=== PATIENT | female | born 1965 ===

== ENCOUNTER 2016-07-04 01:46 | Emergency (ER) | payer MEDICAID ==
[2016-07-04 01:46] VITALS: BMI 14.4
[2016-07-04 02:02] VITALS: PULSE 75
[2016-07-04] MEDS ORDERED: Albuterol 0.083% Inhal Sol (2.5 mg/3 mL) UD INH ONE (02:32)
[2016-07-04] MEDS ORDERED: Albuterol 0.083% Inhal Sol (2.5 mg/3 mL) UD ONE (02:48)
[2016-07-04 02:59] LABS: BASO % 0.4 % (0.0-2.0); EOS # 0.1 K/uL (0.0-0.7); EOS % 1.7 % (0.0-4.0); HEMATOCRIT 40.9 % (34.0-47.0); LYMPH # 2.8 K/uL (1.0-4.3); LYMPH % 32.5 % (20.0-40.0); MEAN CELL VOLUME 81.4 fl (81.0-99.0); MEAN CORPUSCULAR HEMOGLOBIN 27.1 pg (27.0-31.0); MEAN CORPUSCULAR HGB CONC 33.3 g/dL (33.0-37.0); MONO # 0.7 K/uL (0.0-0.8); MONO % 8.3 % (0.0-10.0); NEUT % 57.1 % (50.0-75.0); NRBC % 0.1 % (0.0-0.0); RED CELL DISTRIBUTION WIDTH 13.9 % (11.5-14.5); WHITE BLOOD COUNT 8.7 K/uL (4.8-10.8)
[2016-07-04 03:06] LABS: ALB/GLOB RATIO 1.4 (1.0-2.1); ALKALINE PHOSPHATASE 120 U/L (38-126); ALT/SGPT 64 U/L (9-52); AST/SGOT 40 U/L (14-36); BILIRUBIN,TOTAL 0.2 mg/dl (0.2-1.3); BLOOD UREA NITROGEN 11 mg/dl (7-17); CALCIUM 9.3 mg/dL (8.4-10.2); CARBON DIOXIDE 28 mmol/L (22-30); CHLORIDE 104 mmol/L (98-107); GFR AFRICAN-AMERICAN > 60; GLUCOSE,RANDOM 103 mg/dL (65-105); POTASSIUM 3.7 MMOL/L (3.6-5.0); SODIUM 144 mmol/l (132-148); TOTAL PROTEIN 8.2 G/DL (6.3-8.2)
[2016-07-04] MEDS ORDERED: Sodium Chloride 0.9% 50 ML IV ONE (03:24)
[2016-07-04] MEDS ORDERED: Iodixanol 320 MG/ML 100 ML BOTTLE IV ONE (03:24)
--- NOTE | 2016-07-04 03:31 | ED PDOC ---
HPI: Chest Pain Time Seen by Provider: 07/04/16 02:04 Chief Complaint (Nursing): Chest Pain Chief Complaint (Provider): Chest Pain History Per: Patient History/Exam Limitations: no limitations Onset/Duration Of Symptoms: Hrs Current Symptoms Are (Timing): Still Present Pain Scale Rating Of: 7 Quality: Tightness Associated Symptoms: Nausea Additional Complaint(s): Kellie East, a 50 year old female patient, who has a history of hyperthyroidism presents to the ED complaining of midsternal chest pain.The patient reports that tonight she began feeling tightness, heat and discomfort within her chest. She also states, that on 06/25/2016, she was seen at [facility] for similar chest pains. She states she was diagnosed with asthma and was given a pump and steroids, which she says did not help with the pain. The patient states that she has had some nausea but denies vomiting, fever and cough. Past Medical History Reviewed: Historical Data, Nursing Documentation, Vital Signs Vital Signs: Last Vital Signs Temp 97.9 F 07/04/16 06:40 Pulse 75 07/04/16 06:40 Resp 16 07/04/16 06:40 BP 135/80 07/04/16 06:40 Pulse Ox 100 07/04/16 06:40 - Medical History PMH: Asthma, Gall Bladder Disease (GALLSTONES s/p LAP MAURICE about 6 yrs ago), HTN, Hypercholesterolemia, Hyperthyroidism (multinodular goiters), Hypothyroidism, Sleep Apnea (QUESTIONABLE) Denies: Alzheimer's Disease, Anemia, Anxiety, Arthritis, Atrial Fibrillation , Bipolar Disorder, Bronchitis, Cardia Arrhythmia, CHF, COPD, Crohn's Disease, Dementia, Depression, Diverticulitis, Emphysema, Fractures, Gastritis, HIV, Kidney Stones, Migraine, Mitral Valve Prolapse, Multiple Sclerosis, Osteoporosis , Pancreatitis, Paranoia, Parkinson's Disease, Peripheral Edema, Pneumonia, Post Traumatic Stress Disorder, Pulmonary Embolism, Chronic Kidney Disease, Rheumatoid Arthritis, Schizophrenia, Seizures, Sickle Cell Disease, Sexually Transmitted Disease, TIA - Surgical History Surgical History: Cholecystectomy Denies: Appendectomy, CABG, Carotid Endarterectomy, Coronary Stent, Pacemaker , Tonsillectomy - Family History Family History: States: Unknown Family Hx - Social History Current smoker - smoking cessation education provided: No Ex-Smoker (has not smoked in the last 12 months): No Alcohol: None Drugs: Denies - Immunization History Hx Tetanus Toxoid Vaccination: Yes Hx Influenza Vaccination: No Hx Pneumococcal Vaccination: No - Home Medications Home Medications: Ambulatory Orders Medication Instructions Recorded Albuterol 0.5% [Albuterol 0.5% 0.5 % IH Q4 PRN 06/25/16 Inhal Carol (2.5 mg/0.5 ml) UD] Albuterol HFA [Ventolin HFA 90 1 puff INH BID 06/25/16 mcg/actuation (8 g)] Prednisone 50 mg PO DAILY #5 tablet 06/25/16 - Allergies Allergies/Adverse Reactions: Allergies Allergy/AdvReac Type Severity Reaction Status Date / Time tetracycline Allergy RASH Verified 06/25/16 17:45 vancomycin Allergy RASH Verified 06/25/16 17:45 Review of Systems ROS Statement: Except As Marked, All Systems Reviewed And Found Negative Constitutional: Negative for: Fever Cardiovascular: Positive for: Chest Pain, Other (Tightness, heat and discomfort in chest) Respiratory: Negative for: Cough Gastrointestinal: Positive for: Nausea. Negative for: Vomiting Physical Exam - Reviewed Nursing Documentation Reviewed: Yes Vital Signs Reviewed: Yes - Physical Exam Appears: Positive for: Non-toxic, No Acute Distress Head Exam: Positive for: ATRAUMATIC, NORMOCEPHALIC Skin: Positive for: Normal Color, Warm, Dry Neck: Positive for: Normal, Painless ROM, Supple Cardiovascular/Chest: Positive for: Regular Rate, Rhythm. Negative for: Tachycardia Respiratory: Positive for: Normal Breath Sounds Gastrointestinal/Abdominal: Positive for: Normal Exam, Soft. Negative for: Tenderness Back: Positive for: Normal Inspection. Negative for: L CVA Tenderness, R CVA Tenderness Extremity: Positive for: Normal ROM. Negative for: Deformity, Swelling Neurologic/Psych: Positive for: Alert, Oriented - Laboratory Results Result Diagrams: 07/04/16 02:53 07/04/16 02:53 - ECG O2 Sat by Pulse Oximetry: 99 (RA) Pulse Ox Interpretation: Normal Medical Decision Making Medical Decision Makin Initial impression: Midsternal Chest pain Initial plan: * Angio Chest PT protocol * CMP * Troponin 1 * CBC * D-Dimer * CXR * Albuterol 0.083% Inhal carol 2.5mg/3mL * Peak flow pre/post labs and troponin negative. The patient's D-Dimer was elevated, a CT chest was performed to rule out a pulmonary embolism. Patient was made aware of blood test results for D-Dimer. LFT's elevated - pt aware Troponin repeated 2nd Troponin - Negative 433 CT Angiography Chest With Intravenous Contrast IMPRESSION: 1. No CT evidence of pulmonary embolism. 2. Incidental/non-acute findings are described above Upon provider reevaluation patient is feeling better, is medically stable, sleeping througout ER stay and requires no further treatment in the ED at this time. Patient will be discharged with follow up with primary doctor/referral to cardiology given. pt agreeable to plan. Scribe Attestation Documented by Kelley Oneill acting as a scribe for Roxana Douglas MD. Provider Attestation: All medical record entries made by the Scribe were at my direction and personally dictated by me. I have reviewed the chart and agree that the record accurately reflects my personal performance of the history, physical exam, medical decision making, and the department course for this patient. I have also personally directed, reviewed, and agree with the discharge instructions and disposition. Disposition - Clinical Impression Clinical Impression: Chest pain - Patient ED Disposition Is Patient to be Admitted: No Counseled Patient/Family Regarding: Studies Performed, Diagnosis, Need For Followup - Disposition Referrals: [facility] [Outside] [facility] [Outside] Mychal Gonzalez MD [Staff Provider] - Disposition: Routine/Home Disposition Time: 04:35 Condition: IMPROVED Additional Instructions: follow up with your primary doctor in 1-2 days and with cardiology as instructed return to the ED with any worsening or concerning symptoms. Instructions: Chest Pain (ED) Forms: [facility] ED School/Work Excuse
--- NOTE | 2016-07-04 04:35 | CT ---
EXAM: CT Angiography Chest With Intravenous Contrast CLINICAL HISTORY: 50 years old, female; Pain; Chest pain; Additional info: Elevated ddimer TECHNIQUE: Axial computed tomographic angiography images of the chest with intravenous contrast using pulmonary embolism protocol. This CT exam was performed using one or more of the following dose reduction techniques: automated exposure control, adjustment of the mA and/or kV according to patient size, and/or use of iterative reconstruction technique. MIP reconstructed images were created and reviewed. Coronal and sagittal reformatted images were created and reviewed. CONTRAST: 90 mL of [id number] administered intravenously. COMPARISON: CR - CHEST TWO VIEWS (PA/LAT) 07/04/2016 2:37:43 AM FINDINGS: Pulmonary arteries: No pulmonary embolism. Aorta: No aneurysm. No dissection. Lungs: No consolidation. Pleural space: No significant effusion. No pneumothorax. Heart: No cardiomegaly. No significant pericardial effusion. Bones/joints: Mild curvature of spine. No acute fracture. No dislocation. Soft tissues: Unremarkable. Lymph nodes: No pathologically enlarged lymph nodes. Gallbladder and bile ducts: Cholecystectomy. IMPRESSION: 1. No CT evidence of pulmonary embolism. 2. Incidental/non-acute findings are described above.
[2016-07-04 06:40] VITALS: BP 135/80; RESP 16; TEMP 97.9
[2016-07-04 06:46] VITALS: O2SAT 99
--- NOTE | 2016-07-04 08:35 | RAD ---
HISTORY: Chest pain. COMPARISON: No prior. TECHNIQUE: Chest PA and lateral FINDINGS: LUNGS: No active pulmonary disease. PLEURA: No significant pleural effusion identified. No pneumothorax apparent. CARDIOVASCULAR: Normal. OSSEOUS STRUCTURES: No significant abnormalities. VISUALIZED UPPER ABDOMEN: Normal. OTHER FINDINGS: None. IMPRESSION: No active disease. Concordant results with the preliminary interpretation rendered by the emergency department physician procedure.
== END 2016-07-04 06:42 | disposition home or self-care (01) ==
LOC: H.ER 01:46
DX: R07.9 Chest pain, unspecified (principal); R11.0 Nausea; E03.9 Hypothyroidism, unspecified; J45.909 Unspecified asthma, uncomplicated; I10 Essential (primary) hypertension; E78.00 Pure hypercholesterolemia, unspecified; E05.90 Thyrotoxicosis, unspecified without thyrotoxic crisis or storm; Z87.891 Personal history of nicotine dependence; Z88.0 Allergy status to penicillin; R79.1 Abnormal coagulation profile

== ENCOUNTER 2018-01-18 22:05 | Emergency (ER) | payer BC ==
[2018-01-18 22:05] VITALS: BMI 22.7
[2018-01-18 22:10] VITALS: BP 161/98; PULSE 80; RESP 16; TEMP 98.2; O2SAT 97
--- NOTE | 2018-01-18 22:33 | ED PDOC ---
HPI: Eye Injury/Pain Time Seen by Provider: 01/18/18 22:13 Chief Complaint (Nursing): Eye Problem Chief Complaint (Provider): Swelling, left upper eye lid History Per: Patient History/Exam Limitations: no limitations Onset/Duration Of Symptoms: Days (1 week, worse today ), Waxing/Waning Injury To Eye?: No Associated Symptoms: Pain, Swelling. denies: Decreased Vision Additional Complaint(s): 52 yo female with HTN, high cholesterol and asthma presents for evaluation of left upper eye lid swelling, pain and redness. Pt states it has been getting worse over the last week. Pt reports drainage from the left eye when she woke up this morning. PT states she has had similar in the past which she needed surgery for. Pt denies headache. Pt has not taken anything for pain. Pt denies photophobia. Past Medical History Reviewed: Historical Data, Nursing Documentation, Vital Signs Vital Signs: Last Vital Signs Temp 98.2 F 01/18/18 22:09 Pulse 80 01/18/18 22:09 Resp 16 01/18/18 22:09 BP 161/98 H 01/18/18 22:09 Pulse Ox 97 01/18/18 22:09 - Medical History PMH: Asthma, Gall Bladder Disease (GALLSTONES s/p LAP MAURICE about 6 yrs ago), HTN, Hypercholesterolemia, Hyperthyroidism (multinodular goiters), Hypothyro idism, Sleep Apnea (QUESTIONABLE) Denies: Alzheimer's Disease, Anemia, Anxiety, Arthritis, Atrial Fibrillation, Bipolar Disorder, Bronchitis, Cardia Arrhythmia, CHF, COPD, Crohn's Disease, Dementia, Depression, Diverticulitis, Emphysema, Fractures, Gastritis, HIV, Kidney Stones, Migraine, Mitral Valve Prolapse, Multiple Sclerosis, Osteoporosis, Pancreatitis, Paranoia, Parkinson's Disease, Peripheral Edema, Pneumonia, Post Traumatic Stress Disorder, Pulmonary Embolism, Chronic Kidney Disease, Rheumatoid Arthritis, Schizophrenia, Seizures, Sickle Cell Disease, Sexually Transmitted Disease, TIA - Surgical History Surgical History: Cholecystectomy Denies: Appendectomy, CABG, Carotid Endarterectomy, Coronary Stent, Pacemaker, Tonsillectomy - Family History Family History: States: Unknown Family Hx - Immunization History Hx Tetanus Toxoid Vaccination: Yes Hx Influenza Vaccination: No Hx Pneumococcal Vaccination: No - Home Medications Home Medications: Ambulatory Orders Medication Instructions Recorded Acetaminophen [Tylenol 325mg tab] 2 tab PO QID #35 tab 08/23/16 Famotidine [Pepcid] 20 mg PO BID #14 tab 08/23/16 Levothyroxine [Synthroid] 100 mcg PO DAILY 04/08/17 Tiotropium [Spiriva] 18 mcg IH DAILY 04/09/17 Levofloxacin [Levaquin] 500 mg PO DAILY #7 tablet 04/11/17 Tamsulosin [Flomax] 0.4 mg PO DAILY #30 cap 04/11/17 oxyCODONE/Acetaminophen [Percocet 1 tab PO Q6 PRN #20 tab 04/11/17 5/325 mg Tab] Cephalexin [Keflex] 500 mg PO BID #14 capsule 01/18/18 Cephalexin [Keflex] 500 mg PO BID #14 capsule 01/18/18 Ibuprofen [Motrin Tab] 800 mg PO Q6H PRN #20 tab 01/18/18 Ibuprofen [Motrin Tab] 800 mg PO Q6H PRN #20 tab 01/18/18 Polymyxin/Trimethoprim Sulfate 1 drop .ROUTE Q6H 10 Days bottle 01/18/18 [Polytrim Ophth Soln] Polymyxin/Trimethoprim Sulfate 1 drop XX Q6H 10 Days bottle 01/18/18 [Polytrim Ophth Soln] - Allergies Allergies/Adverse Reactions: Allergies Allergy/AdvReac Type Severity Reaction Status Date / Time tetracycline Allergy RASH Verified 01/18/18 22:07 vancomycin Allergy RASH Verified 01/18/18 22:07 Review of Systems ROS Statement: Except As Marked, All Systems Reviewed And Found Negative Constitutional: Negative for: Fever, Chills Eyes: Positive for: Eyelid Inflammation. Negative for: Pain, Vision Change, Conjunctivae Inflammation Physical Exam - Reviewed Nursing Documentation Reviewed: Yes Vital Signs Reviewed: Yes - Physical Exam Appears: Positive for: Well, Non-toxic, No Acute Distress Head Exam: Positive for: ATRAUMATIC, NORMAL INSPECTION, NORMOCEPHALIC Skin: Positive for: Normal Color, Warm, DRY Eye Exam: Positive for: Normal appearance, Conjunctival injection, Other ((+) edema and erythema of the left upper eyelid). Negative for: Periorbital swelling, Periorbital tenderness ENT: Positive for: Normal ENT Inspection Neck: Positive for: Normal Cardiovascular/Chest: Negative for: Bradycardia, Tachycardia Respiratory: Negative for: Accessory Muscle Use, Respiratory Distress Back: Positive for: Normal Inspection Extremity: Positive for: Normal ROM Neurologic/Psych: Positive for: Alert. Negative for: Gait, Aphasia - ECG O2 Sat by Pulse Oximetry: 97 Pulse Ox Interpretation: Normal Medical Decision Making Medical Decision Making: Discussed warm compressed and f/u with denial resolution specialist. Disposition - Clinical Impression Clinical Impression: Sty - Patient ED Disposition Is Patient to be Admitted: No Counseled Patient/Family Regarding: Diagnosis, Need For Followup, Rx Given - Disposition Referrals: Remington Winkler MD [Staff Provider] - Disposition: Routine/Home Disposition Time: 22:30 Condition: GOOD Prescriptions: Cephalexin [Keflex] 500 mg PO BID #14 capsule Cephalexin [Keflex] 500 mg PO BID #14 capsule Ibuprofen [Motrin Tab] 800 mg PO Q6H PRN #20 tab PRN Reason: Pain Ibuprofen [Motrin Tab] 800 mg PO Q6H PRN #20 tab PRN Reason: Pain Polymyxin/Trimethoprim Sulfate [Polytrim Ophth Soln] 1 drop XX Q6H 10 Days bottle Polymyxin/Trimethoprim Sulfate [Polytrim Ophth Soln] 1 drop .ROUTE Q6H 10 Days bottle Instructions: Maxine (Maribel) Forms: [facility] (Icelandic), [facility] ED School/Work Excuse
== END 2018-01-18 23:34 | disposition home or self-care (01) ==
LOC: H.ER 22:05
DX: H00.016 Hordeolum externum left eye, unspecified eyelid (principal)

== ENCOUNTER 2018-02-10 19:19 | Emergency (ER) | payer BC ==
[2018-02-10 19:21] VITALS: BMI 22.7
[2018-02-10 19:47] VITALS: BP 139/86; PULSE 72; RESP 16; TEMP 98.2; O2SAT 100
--- NOTE | 2018-02-10 20:14 | ED PDOC ---
HPI: General Adult Time Seen by Provider: 02/10/18 19:49 Chief Complaint (Nursing): Flu-like Symptoms Chief Complaint (Provider): Flu-like Symptoms History Per: Patient History/Exam Limitations: no limitations Onset/Duration Of Symptoms: Days (x3) Current Symptoms Are (Timing): Still Present Additional Complaint(s): 52 year old female presents to the ED for evaluation of throat pain, swollen node on left side of neck, tactile fever, and chills for the past three days. 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 LNMP: says she has not gotten it in years secondary to getting her thyroid removed PMD: [facility] in [place] Past Medical History Reviewed: Historical Data, Nursing Documentation, Vital Signs Vital Signs: Last Vital Signs Temp 98.2 F 02/10/18 19:44 Pulse 72 02/10/18 19:44 Resp 16 02/10/18 19:44 BP 139/86 02/10/18 19:44 Pulse Ox 100 02/10/18 19:44 - Medical History PMH: Asthma, Gall Bladder Disease, HTN, Hypercholesterolemia, Hyperthyroidism (multinodular goiters), Hypothyroidism, Sleep Apnea - Surgical History Surgical History: Cholecystectomy Other surgeries: thyroid removal - Family History Family History: States: Unknown Family Hx - Living Arrangements Living Arrangements: With Family - Social History Current smoker - smoking cessation education provided: Yes (light) Alcohol: None Drugs: Denies - Home Medications Home Medications: Ambulatory Orders Medication Instructions Recorded Acetaminophen [Tylenol 325mg tab] 2 tab PO QID #35 tab 08/23/16 Famotidine [Pepcid] 20 mg PO BID #14 tab 08/23/16 Levothyroxine [Synthroid] 100 mcg PO DAILY 04/08/17 Tiotropium [Spiriva] 18 mcg IH DAILY 04/09/17 Levofloxacin [Levaquin] 500 mg PO DAILY #7 tablet 04/11/17 Tamsulosin [Flomax] 0.4 mg PO DAILY #30 cap 04/11/17 oxyCODONE/Acetaminophen [Percocet 1 tab PO Q6 PRN #20 tab 04/11/17 5/325 mg Tab] Cephalexin [Keflex] 500 mg PO BID #14 capsule 01/18/18 Cephalexin [Keflex] 500 mg PO BID #14 capsule 01/18/18 Ibuprofen [Motrin Tab] 800 mg PO Q6H PRN #20 tab 01/18/18 Ibuprofen [Motrin Tab] 800 mg PO Q6H PRN #20 tab 01/18/18 Polymyxin/Trimethoprim Sulfate 1 drop .ROUTE Q6H 10 Days bottle 01/18/18 [Polytrim Ophth Soln] Polymyxin/Trimethoprim Sulfate 1 drop XX Q6H 10 Days bottle 01/18/18 [Polytrim Ophth Soln] RX: Ibuprofen [Motrin Tab] 600 mg PO Q8 PRN #21 tab 02/10/18 - Allergies Allergies/Adverse Reactions: Allergies Allergy/AdvReac Type Severity Reaction Status Date / Time tetracycline Allergy RASH Verified 02/10/18 19:48 vancomycin Allergy RASH Verified 02/10/18 19:48 Review of Systems ROS Statement: Except As Marked, All Systems Reviewed And Found Negative Constitutional: Positive for: Fever, Chills ENT: Positive for: Throat Pain Cardiovascular: Negative for: Chest Pain Respiratory: Negative for: Cough, Shortness of Breath Gastrointestinal: Negative for: Nausea, Vomiting, Abdominal Pain Musculoskeletal: Positive for: Other (swollen lymph node on left side of neck) Neurological: Negative for: Dizziness Physical Exam - Reviewed Nursing Documentation Reviewed: Yes Vital Signs Reviewed: Yes - Physical Exam Comments: GENERAL APPEARANCE: Patient is awake, alert, oriented x 3, in no acute distress. Resting comfortably. SKIN: Warm, dry; (-) cyanosis, (-) rash EYES: (-) conjunctival pallor, (-) scleral icterus, (-) conjunctival hemorrhage. ENMT: Mucous membranes moist. TMs: (-) erythema, (-) bulging. Airway patent: (-) stridor. Pharynx: clear, uvula midline (+) faint erythema, (-) exudate. NECK: Supple, FROM (+) To left anterior proximal cervical chain: (+) palpable mobile 1cm x 1cm lymph node x1, (+) mild tenderness (-) overlying skin changes. CHEST AND RESPIRATORY: (-) rales, (-) rhonchi, (-) wheezes; breath sounds equal bilaterally. Respirations nonlabored. HEART AND CARDIOVASCULAR: (-) irregularity ABDOMEN AND GI: Soft; (-) tenderness, (-) guarding (-) CVA tenderness EXTREMITIES: (-) deformity NEURO AND PSYCH: Mental status as above; (-) focal findings. Gait: steady. Speech: clear. (-) facial asymmetry - ECG O2 Sat by Pulse Oximetry: 100 (RA) Pulse Ox Interpretation: Normal Medical Decision Making Medical Decision Making: Initial Impression: lymphadenopathy in neck, pharyngitis Time: 1999 Initial Plan: --Toradol 30mg IM --Throat culture --Influenza A B swab --Rapid strep 2225 Rapid Strep: negative Influenza: negative On re-evaluation, patient reports improvement of symptoms. On exam, patient remains AAOx3, in no acute distress. Vitals stable. Lab/Diagnostic results d/w the patient in great detail. Diagnosis of swollen lymph node, viral pharyngitis d/w the patient. Based on history, exam and diagnostic results, plan will be for outpatient follow up with PMD/ENT. Patient instructed to follow-up with pmd / referral provided / the clinic in 1- 2 days without fail. Advised to take medication as prescribed. Return to the emergency room at any time for any new or worsening symptoms. Patient states she fully agrees with and understands discharge instructions. States that she agrees with the plan and disposition. Verbalized and repeated discharge instructions and plan. I have given the patient opportunity to ask any additional questions. Scribe Attestation: Documented by Alice Carballo, acting as a scribe for Heather James PA-C. Provider Scribe Attestation: All medical record entries made by the Scribe were at my direction and personally dictated by me. I have reviewed the chart and agree that the record accurately reflects my personal performance of the history, physical exam, medical decision making, and the department course for this patient. I have also personally directed, reviewed, and agree with the discharge instructions and disposition. Disposition - Clinical Impression Clinical Impression: Swelling of lymph node, Throat pain in adult, Viral pharyngitis - Patient ED Disposition Is Patient to be Admitted: No Counseled Patient/Family Regarding: Studies Performed, Diagnosis, Need For Followup, Rx Given - Disposition Referrals: primary, doctor [Other] Anjel Del Valle MD [Staff Provider] - Disposition: Routine/Home Disposition Time: 22:30 Condition: STABLE Additional Instructions: FOLLOW UP WITH PMD IF LYMPH NODE STILL SWOLLEN IN 2-3 WEEKS. The emergency medical care you received today was directed at your acute symptoms. If you were prescribed any medication, please fill it and take as directed. It may take several days for your symptoms to resolve. Return to the Emergency Department if your symptoms worsen, do not improve, or if you have any other problems. Please contact your doctor in 2 days for re-evaluation and follow up / or call one of the physicians/clinics you have been referred to that are listed on the Patient Visit Information form that is included in your discharge packet. Bring any paperwork you were given at discharge with you along with any medications you are taking to your follow up visit. Our treatment cannot replace ongoing medical care by a primary care provider (PCP) outside of the emergency department. Prescriptions: RX: Ibuprofen [Motrin Tab] 600 mg PO Q8 PRN #21 tab PRN Reason: Pain, Moderate (4-7) Instructions: Viral Pharyngitis, Sore Throat in Adults, Swollen Neck Nodes in Children Forms: [facility] (Czech) Print Language: PRYDEINIG - POA Present On Arrival: None Results - Lab Results Lab Results: 02/10/18 02/10/18 21:00 21:00 Influenza Typ A,B (EIA) Negative for flu a/b Grp A Beta Strep Ag Negative
== END 2018-02-10 22:54 | disposition home or self-care (01) ==
LOC: H.ER 19:19
DX: J02.9 Acute pharyngitis, unspecified (principal); R59.9 Enlarged lymph nodes, unspecified; E03.9 Hypothyroidism, unspecified; E05.90 Thyrotoxicosis, unspecified without thyrotoxic crisis or storm; E78.00 Pure hypercholesterolemia, unspecified
CPT/HCPCS: 87070; 87430; 87804; 96372; 99283; J1885